=== PATIENT | female | born 1990 | race Caucasian/White ===

== ENCOUNTER 2020-03-20 19:38 | Emergency (ER) | payer OTHER, SELFPAY ==
[2020-03-20 19:57] VITALS: BP 105/70; PULSE 114; RESP 16; TEMP 36.6; O2SAT 97; BMI 31.8
[2020-03-20 20:00] VITALS: BP 108/71; PULSE 94; RESP 15; TEMP 37.8; O2SAT 97
--- NOTE | 2020-03-20 21:06 | CT_ITS ---
EXAMINATION: CT ABDOMEN AND PELVIS WITH CONTRAST CLINICAL INFORMATION: Bilateral lower quadrant pain COMPARISON: None TECHNIQUE: Multidetector volumetric images were obtained from the superior aspect of the liver through the pubic symphysis following administration 85 mL of Omnipaque 350 intravenous contrast. Sagittal and coronal reformatted images were obtained on the technologist's workstation. Oral contrast: No This CT examination was performed using dose optimization techniques as appropriate, variously including the following: *Automated exposure control *Adjustment of mA and/or kV according to patient size (this includes techniques or standardized protocols for targeted exams where dose is matched to indication/reason for exam; i.e. extremities or head) *Use of iterative reconstruction technique DLP: 616 mGy-cm FINDINGS: LUNG BASES: The visualized lung bases are unremarkable. LIVER, GALLBLADDER, AND BILIARY TREE: The liver is normal in size, shape, and attenuation. No focal hepatic lesion or biliary ductal dilatation is present. The gallbladder is unremarkable with no evidence of radiopaque gallstones, gallbladder wall thickening, or obvious pericholecystic inflammatory changes. PANCREAS: There is an approximately 1.1 cm hypodense lesion measuring at the upper limits of simple fluid density in the distal pancreas as seen on image 17/91. SPLEEN: Unremarkable. ADRENAL GLANDS: Unremarkable. KIDNEYS AND URETERS: The kidneys are normal in size, shape, and attenuation. No hydronephrosis, hydroureter, or calculi seen. No perinephric stranding. BLADDER: Unremarkable. GASTROINTESTINAL TRACT: There is a segment of colonic wall thickening centered around an inflamed diverticulum of the sigmoid colon, and there is pericolonic inflammation consistent with sequelae of acute diverticulitis. No pericolonic abscess or free air is seen. Trace pelvic free fluid is present. No evidence of bowel obstruction. The appendix is unremarkable. ABDOMINAL WALL: No significant hernia is appreciated. LYMPH NODES: Normal. VASCULAR: Unremarkable. PELVIC VISCERA: Unremarkable. OSSEOUS STRUCTURES: Unremarkable. IMPRESSION: 1. Diverticulitis of the sigmoid colon. No pericolonic abscess or free air identified. 2. Approximately 1.1 cm hypodense lesion in the distal pancreas, which could represent a small cystic neoplasm. Further workup with MRI/MRCP is recommended.
--- NOTE | 2020-03-20 21:07 | ED_ITS ---
HPI - Abdominal Pain General Chief Complaint: Abdominal Pain Stated Complaint: ABD PAIN Time Seen by Provider: 03/20/20 21:02 Source: patient Mode of arrival: ambulatory Limitations: no limitations History of Present Illness HPI narrative: Patient comes to the emergency room complaining of bilateral lower quadrant pain starting this morning. Patient states she feels pressure, intermittent pain, patient states when she has pain is 10/10 when she has to crawl into a position to alleviate the pain. The discomfort is not related to meals. Patient denies vomiting, diarrhea or constipation. No fever. MD elicited complaint: abdominal pain Onset (ago): hour(s) Pain Consistency: constant Location: RLQ and LLQ Severity: moderate Quality: cramping Radiation: none Migration to: no migration Related Data Previous Rx's Medication Instructions Recorded levofloxacin 500 mg PO Q24H #7 tab 03/21/20 metronidazole 500 mg PO BID #14 tab 03/21/20 Allergies Allergy/AdvReac Type Severity Reaction Status Date / Time No Known Allergies Allergy Verified 03/20/20 21:06 Review of Systems Review of Systems Constitutional : No Weight loss, No Fever, No Chills, No Night Sweats, No Fatigue, No Malaise ENT/Mouth : No Hearing loss, No Ear Pain, No Nasal Congestion, No Sinus Pain, No Hoarseness, No sore throat, No Rhinorrhea, No Swallowing Difficulty Eyes: No Eye Pain, No Swelling, No Redness, No Foreign Body, No Discharge, No Vision Changes Cardiovascular : No Chest Pain, No SOB, No Dyspnea on Exertion, No Orthopnea, No Edema, No Palpitations Respiratory : No Cough, No Sputum, No Wheezing, No Smoke Exposure, No Dyspnea Gastrointestinal : No Nausea, No Vomiting, No Diarrhea, No Constipation, bilateral lower quadrant pain, No Hematochezia, No Melena Genitourinary : no irregular bleeding, No Dysuria, No Urinary Frequency, No Hematuria, No Urinary Incontinence, No Urgency, No Flank Pain, No Urinary Flow Changes, No Hesitancy Musculoskeletal : No joint pain, No Myalgias, No Joint Swelling Skin : No Skin Lesions, No rash Neuro : No Weakness, No Numbness, No Paresthesias, No Loss of Consciousness, No Dizziness, No Headache Psych : No Anxiety/Panic, No Depression, No SI/HI/AH/VH, No Social Issues, Heme/Lymph: No Bruising, No Bleeding,No Lymphadenopathy Endocrine : No Polyuria, No Polydipsia, No Temperature Intolerance Physical Exam Vital Signs: Vital Signs: Vital Signs Temp Pulse Resp BP Pulse Ox 03/21/20 00:17 98.9 F 89 16 105/69 03/20/20 22:00 100.0 F 98 16 110/65 100 03/20/20 20:00 100.0 F 94 15 108/71 97 03/20/20 19:57 98 F 114 H 16 105/70 97 Body Mass Index 31.8 Appearance: Alert. Oriented X3. No acute distress. Eyes: Pupils equal, round and reactive to light. ENT: Pharynx normal. Neck: Normal inspection. Neck supple. No lymph nodes noted. No crepitus CVS: Normal heart rate and rhythm. Pulses normal. Normal S1 and S2 Respiratory: No respiratory distress. Breath sounds normal. No Wheezing. No rales Abdomen: Soft , moderate tenderness to deep palpation in left and right lower quadrants, No rigidity. No distention, no guarding, good BS x4 Skin: Skin warm and dry. Normal skin color. Normal skin turgor. Extremities: No lower extremity edema. No lower extremity edema. No Lacerations. No Rash Neuro: Oriented X 3. No motor deficit. No sensory deficit. Moving all extermities. No slurred speech. Course Reevaluation(s) Reevaluation #1: patient's abdominal pain resolved MDM - Abdominal Pain MDM Narrative Medical decision making narrative: I discussed the labs and CT scan with the patient, patient will be treated for diverticulitis. Patient is also aware that she has a small mass in the pancreas, she needs close follow-up with her primary care physician and will need an MRI. Patient states she has an appointment at the end of the week With her PCP. abdomen and pelvis CT scan: 1. Diverticulitis of the sigmoid colon. No pericolonic abscess or free air identified. 2. Approximately 1.1 cm hypodense lesion in the distal pancreas, which could represent a small cystic neoplasm. Further workup with MRI/MRCP is recommended. Differential Diagnosis Differential diagnosis: Likely abdominal pain and diverticulitis Medical Records Attestation: I reviewed the patient's medical records. Lab Data Attestation: I reviewed the patient's lab results. Result diagrams: 03/20/20 21:17 03/20/20 22:09 Labs: Lab Results 03/20/20 03/20/20 03/20/20 Range/Units 21:17 21:17 21:17 WBC 12.4 H (4.8-10.8) X10*3/uL RBC 4.76 (4.20-5.50) X10*6/uL Hgb 12.8 (12.0-16.0) g/dl Hct 39.9 (37-47) % MCV 83.8 (80-98) fL MCH 26.9 L (27.0-33.0) pg MCHC 32.1 (31.0-35.0) g/dl RDW 15.2 (11.0-16.0) % Plt Count 297 (160-400) X10*3/uL MPV 11.7 (9.4-12.3) fL Immature Gran % (Auto) 0.2 (0.0-0.4) % Neut % (Auto) 81.8 H (45-73) % Lymph % (Auto) 10.2 L (20-40) % [place] % (Auto) 7.4 (2-11) % Eos % (Auto) 0.2 (0-4) % Baso % (Auto) 0.2 (0-2) % Lymph # (Auto) 1.3 (1.2-4.9) X10*3/uL [place] # (Auto) 0.9 (0.1-1.2) X10*3/uL Eos # (Auto) 0.0 (0.0-0.4) X10*3/uL Baso # (Auto) 0.0 (0.0-0.2) X10*3/uL Abs Immat Gran (auto) 0.03 (0.00-0.03) X10*3/uL Absolute Neuts (auto) 10.2 H (2.0-8.3) X10*3/uL Absolute Nucleated RBC 0.000 (0.0-0.012) X10*3/uL Nucleated RBC % (auto) 0.0 (0.0-0.2) /100WBC Sodium Cancelled Potassium Cancelled Chloride Cancelled Carbon Dioxide Cancelled Anion Gap Cancelled BUN Cancelled Creatinine Cancelled Estim Creat Clear Calc Cancelled Estimated GFR Cancelled Random Glucose Cancelled Calcium Cancelled Total Bilirubin Cancelled Direct Bilirubin Cancelled AST Cancelled ALT Cancelled Alkaline Phosphatase Cancelled Total Protein Cancelled Albumin Cancelled Lipase (8-78) U/L Urine Color YELLOW Urine Appearance CLEAR Urine pH 5.5 (5.0-8.0) Ur Specific [place] >= 1.030 H (1.005-1.025) Urine Protein NEG (NEG-TRACE) MG/DL Urine Glucose (UA) NEG (NEG) MG/DL Urine Ketones NEG (NEG) MG/DL Urine Blood NEG (NEG) Urine Nitrite NEG (NEG) Ur Leukocyte Esterase NEG (NEG) Urine Test NEGATIVE (NEGATIVE) 03/20/20 Range/Units 22:09 WBC (4.8-10.8) X10*3/uL RBC (4.20-5.50) X10*6/uL Hgb (12.0-16.0) g/dl Hct (37-47) % MCV (80-98) fL MCH (27.0-33.0) pg MCHC (31.0-35.0) g/dl RDW (11.0-16.0) % Plt Count (160-400) X10*3/uL MPV (9.4-12.3) fL Immature Gran % (Auto) (0.0-0.4) % Neut % (Auto) (45-73) % Lymph % (Auto) (20-40) % [place] % (Auto) (2-11) % Eos % (Auto) (0-4) % Baso % (Auto) (0-2) % Lymph # (Auto) (1.2-4.9) X10*3/uL [place] # (Auto) (0.1-1.2) X10*3/uL Eos # (Auto) (0.0-0.4) X10*3/uL Baso # (Auto) (0.0-0.2) X10*3/uL Abs Immat Gran (auto) (0.00-0.03) X10*3/uL Absolute Neuts (auto) (2.0-8.3) X10*3/uL Absolute Nucleated RBC (0.0-0.012) X10*3/uL Nucleated RBC % (auto) (0.0-0.2) /100WBC Sodium 137 Potassium 4.2 Chloride 103 Carbon Dioxide 25 Anion Gap 13 BUN 13 Creatinine 0.69 Estim Creat Clear Calc 128.4 Estimated GFR > 60 Random Glucose 100 Calcium 9.1 Total Bilirubin 0.4 Direct Bilirubin 0.2 AST 15 ALT 18 Alkaline Phosphatase 75 Total Protein 7.4 Albumin 4.1 Lipase 8 (8-78) U/L Urine Color Urine Appearance Urine pH (5.0-8.0) Ur Specific [place] (1.005-1.025) Urine Protein (NEG-TRACE) MG/DL Urine Glucose (UA) (NEG) MG/DL Urine Ketones (NEG) MG/DL Urine Blood (NEG) Urine Nitrite (NEG) Ur Leukocyte Esterase (NEG) Urine Test (NEGATIVE) Discharge Plan Discharge Clinical Impression: Diverticulitis Patient Disposition: Home, Self-Care Instructions: Diverticulitis (ED), Diverticulitis Diet (ED) Additional Instructions: please follow-up with her primary care physician, please discuss with your PCP the CT scan findings of today ( diverticulitis and 1.1cm pancreatic lesion). it is very important that you discussed these findings with your primary care physician since she will likely need an MRI. If you have any worsening or new symptoms, please return to the emergency room or call 911 Prescriptions: New levofloxacin 500 mg tablet 500 mg PO Q24H Qty: 7 RF: 0 metronidazole 500 mg tablet 500 mg PO BID Qty: 14 RF: 0 PMFSH Past Medical History Medical History Asthma Migraine Social History Social History Alcohol intake: never Smoking Status: Never smoker Use of substances other than those prescribed or required for medical reasons: No Advance Directives: No Advance Directives Information Provided: Yes
--- NOTE | 2020-03-20 21:12 | PC.NURSE ---
Pt ambulating to the bathroom to provide urine sample. Pt ambulating with a carney/steady gait.
--- NOTE | 2020-03-20 21:26 | PC.NURSE ---
Pt ambulating to the bathroom to provide urine sample.
[2020-03-20 21:27] LABS: MANUAL DIFF FLAG NO
--- NOTE | 2020-03-20 21:27 | PC.NURSE ---
IV established, labs and urine obtained and sent.
[2020-03-20 21:30] LABS: Basophils Percent Auto 0.2 % (0-2); Eosinophils Percent Auto 0.2 % (0-4); Glucose Urine UA NEG (NEG); Hematocrit 39.9 % (37-47); Hemoglobin 12.8 g/dl (12.0-16.0); Imm Gran Abs Auto 0.03 X10*3/uL (0.00-0.03); Imm Gran Pct Auto 0.2 % (0.0-0.4); Leukocyte Esterase Urine NEG (NEG); Lymphocytes Absolute Auto 1.3 X10*3/uL (1.2-4.9); Lymphocytes Percent Auto 10.2 % (20-40); Mean Corpuscular HGB Conc 32.1 g/dl (31.0-35.0); Mean Corpuscular Hemoglobin 26.9 pg (27.0-33.0); Mean Corpuscular Volume 83.8 fL (80-98); Mean Platelet Volume 11.7 fL (9.4-12.3); Monocytes Absolute Auto 0.9 X10*3/uL (0.1-1.2); Monocytes Percent Auto 7.4 % (2-11); Neutrophils Absolute Auto 10.2 X10*3/uL (2.0-8.3); Neutrophils Percent Auto 81.8 % (45-73); Nitrite Urine NEG (NEG); PH 5.5 (5.0-8.0); Platelet Count 297 X10*3/uL (160-400); Red Blood Count 4.76 X10*6/uL (4.20-5.50); Red Cell Distribution Width 15.2 % (11.0-16.0); Specific Gravity - Urine >= 1.030 (1.005-1.025); Urine Blood NEG (NEG); Urine Ketones NEG (NEG); Urine Protein NEG (NEG-TRACE); White Blood Count 12.4 X10*3/uL (4.8-10.8)
[2020-03-20 21:32] LABS: Appearance Urine CLEAR; Color Urine YELLOW; UPreg QC Valid YES; Urine Pregnancy NEGATIVE (NEGATIVE)
[2020-03-20 22:00] VITALS: BP 110/65; PULSE 98; RESP 16; TEMP 37.8; O2SAT 100
[2020-03-20] MEDS: Ketorolac Tromethamine 15 MG/ML VIAL IV (22:04)
--- NOTE | 2020-03-20 22:27 | PC.NURSE ---
Labs redrawn and sent for analysis.
[2020-03-20 22:51] LABS: Lipase 8 U/L (8-78)
--- NOTE | 2020-03-20 23:14 | PC.NURSE ---
Per CT, awaiting lab results. This RN calling the lab inquiring about the results, per lab, orders to be added on to previous specimen.
[2020-03-20 23:50] LABS: Alanine Aminotransferase 18 U/L (0-31); Albumin Level 4.1 g/dL (3.5-5.0); Alkaline Phosphatase 75 U/L (39-117); Anion Gap 13 (12-20); Aspartate Amino Transferase 15 U/L (5-31); Bilirubin Direct 0.2 mg/dL (0.0-0.5); Bilirubin Total 0.4 mg/dL (0.0-1.0); Blood Urea Nitrogen 13 mg/dL (9-16); Calcium 9.1 mg/dL (8.4-10.2); Carbon Dioxide 25 mmol/L (22-29); Chloride 103 mmol/L (96-108); Creatinine Clr Calc Pharmacy 128.4; Estimated Glomerular Filt Rate > 60; Glucose Random 100 mg/dL (60-115); Potassium 4.2 mmol/l (3.3-5.1); Sodium 137 mmol/L (135-145); Total Protein 7.4 g/dL (6.5-8.0)
--- NOTE | 2020-03-21 00:02 | PC.NURSE ---
Pt ambulating to CT with a carney/steady gait.
[2020-03-21 00:17] VITALS: BP 105/69; PULSE 89; RESP 16; TEMP 37.2
[2020-03-21] MEDS: iohexoL 350 MG/ML 100 ML INFUS..BTL 85 ML IV (00:17)
[2020-03-21] MEDS: metroNIDAZOLE 500 MG TABLET PO (01:10)
[2020-03-21] MEDS: levoFLOXacin 500 MG TABLET PO (01:10)
--- NOTE | 2020-03-21 01:11 | PC.NURSE ---
Pt medicated per EMAR, aware of plan to DC home.
[2020-03-21 01:14] VITALS: BP 121/76; RESP 16; TEMP 37; O2SAT 99
== END 2020-03-21 01:23 | disposition home or self-care (01) ==
PROVIDERS: Emergency Provider Emergency Medicine
DX: K57.32 Diverticulitis of large intestine without perforation or abscess without bleeding (principal); R93.3 Abnormal findings on diagnostic imaging of other parts of digestive tract; K86.9 Disease of pancreas, unspecified; J45.909 Unspecified asthma, uncomplicated
CPT/HCPCS: 36415; 74177; 80048; 80076; 81003; 81025; 83690; 85025; 96374; 99284; J1885

== ENCOUNTER 2020-05-12 12:57 | Outpatient (REF) | payer OTHER, SELFPAY | END 2020-05-12 12:58 | disposition home or self-care (01) | LOC: HO.LAB 12:57 | PROVIDERS: Visit Provider Internal Medicine | DX: Z20.828 Contact with and (suspected) exposure to other viral communicable diseases (principal) | CPT/HCPCS: C9803; U0003 ==

== ENCOUNTER 2020-06-17 14:21 | Emergency (ER) | payer OTHER, SELFPAY ==
[2020-06-17 17:16] VITALS: BP 128/76; PULSE 86; RESP 16; TEMP 36.8; O2SAT 99; BMI 31.6
--- NOTE | 2020-06-17 23:12 | ED.DIZZY ---
HPI - Dizziness General Chief Complaint: Dizziness Stated Complaint: dizziness Time Seen by Provider: 06/17/20 23:10 Source: patient Mode of arrival: ambulatory Limitations: language barrier History of Present Illness HPI Narrative: Patient no significant past medical history been feeling dizziness since yesterday started all of a sudden specially moving her head. Feel off-balance nauseated vomited 1 time. Patient also late for her menses By 1 week MD elicited complaint: dizziness Pertinent past history: BPPV Onset (ago): day(s) (2) Timing: sudden onset Severity: mild Description: sense of movement and room spinning Context: change in body position History of similar symptoms: Yes Exacerbating factors: change in body position Relieving factors: nothing Associated symptoms: nausea and vomiting Related Data Previous Rx's Medication Instructions Recorded levofloxacin 500 mg PO Q24H #7 tab 03/21/20 metronidazole 500 mg PO BID #14 tab 03/21/20 meclizine 25 mg PO TID PRN #20 tab 06/18/20 Allergies Allergy/AdvReac Type Severity Reaction Status Date / Time No Known Allergies Allergy Verified 06/17/20 17:42 Review of Systems Review of Systems: Constitutional : No Weight loss, No Fever, No Chills ENT/Mouth : No sore throat, No Rhinorrhea Eyes: No Eye Pain, No Swelling Cardiovascular : No Chest Pain, no palpitations Respiratory : No Cough, No Sputum, no shortness of breath Gastrointestinal : no Nausea, No Vomiting, No Diarrhea, No abdominal Pain, no black stools Genitourinary : No Dysuria, No Urinary Frequency Musculoskeletal : No joint pain, No Myalgias, No Joint Swelling Skin : No Skin Lesions, No rash Neuro : No Weakness, No Numbness,++Dizziness, No Headache Psych : No Anxiety/Panic, No Depression Heme/Lymph: No Bruising, No Lymphadenopathy Endocrine : No Polyuria, No Polydipsia All other systems reviewed and are negative ENT: Reports Normal hearing present Neurologic: Reports Normal hearing present [facility] Past Medical History Medical History Asthma Migraine Social History Social History Alcohol intake: never Smoking Status: Never smoker Smoked in Last 30 Days: No Use of substances other than those prescribed or required for medical reasons: No Advance Directives: No Physical Exam Vital Signs: Vital Signs: Last Vital Signs Temp 98.2 F 06/17/20 17:16 Pulse 86 06/17/20 17:16 Resp 16 06/17/20 17:16 BP 128/76 06/17/20 17:16 Pulse Ox 99 06/17/20 17:16 Body Mass Index 31.6 Const: General: cooperative, healthy appearing, comfortable, no acute distress and well developed Orientation/consciousness: patient oriented x3 HENMT: Head: Yes normocephalic and Yes atraumatic Ears: hearing grossly normal bilaterally, external ears normal, TM's normal bilaterally and EAC's normal General nose exam: Normal external nose present Face and sinus: Yes normal facial exam Mouth: Normal oral and palatal mucosa present Eyes: General: appearance normal, both eyes and all related structures Pupils: Equal, round and reactive pupils present Neck: Neck: Yes normal visual inspection, Yes full ROM and Yes no lymphadenopathy Thyroid: Thyroid normal Resp: Effort & Inspection: normal respiratory effort Auscultation: clear to auscultation bilaterally, no crackles and no rales Cardio: Rate: regular rate Rhythm: regular rhythm Heart sounds: S1 normal heart sound present and S2 normal heart sound present GI: Inspection: Yes normal to inspection Palpation (GI): Soft to palpation and nontender Neuro: General: patient oriented x3, gait normal, moves all extremities, no focal motor deficits and CN's II-XI intact bilaterally Cranial nerves: Yes CN's II-XII intact bilaterally, Yes Equal, round and reactive pupils present, Yes Bilaterally intact EOM present, Yes Nystagmus not present and Yes Normal hearing present MDM - Dizziness Lab Data Labs: Lab Results 06/17/20 Range/Units 23:29 Urine Color YELLOW Urine Appearance CLEAR Urine pH 6.0 (5.0-8.0) Ur Specific [place] >= 1.030 H (1.005-1.025) Urine Protein NEG (NEG-TRACE) MG/DL Urine Glucose (UA) NEG (NEG) MG/DL Urine Ketones NEG (NEG) MG/DL Urine Blood NEG (NEG) Urine Nitrite NEG (NEG) Ur Leukocyte Esterase TRACE H (NEG) Urine RBC 0-2 (0) /HPF Urine WBC 5-9 H (0-4) /HPF Ur Squamous Epith Cells 3+ /LPF Urine Bacteria TRACE /LPF Urine Mucus 2+ /LPF Urine Yeast TRACE /HPF Urine Test NEGATIVE (NEGATIVE) Discharge Plan Discharge Clinical Impression: Benign paroxysmal positional vertigo Patient Disposition: Home, Self-Care Instructions: Benign Paroxysmal Positional Vertigo (ED) Additional Instructions: Care and cautions as advised take medication as prescribed for severe dizziness follow up with PCP if not better Prescriptions: New meclizine 25 mg tablet 25 mg PO TID PRN (Reason: dizziness or vertigo) Qty: 20 RF: 0 No Action levofloxacin 500 mg tablet 500 mg PO Q24H Qty: 7 RF: 0 metronidazole 500 mg tablet 500 mg PO BID Qty: 14 RF: 0 Print Language: [place]
[2020-06-17 23:41] LABS: Glucose Urine UA NEG (NEG); Leukocyte Esterase Urine TRACE (NEG); Nitrite Urine NEG (NEG); Specific Gravity - Urine >= 1.030 (1.005-1.025); Urine Blood NEG (NEG); Urine Ketones NEG (NEG); Urine Protein NEG (NEG-TRACE)
[2020-06-17 23:48] LABS: Appearance Urine CLEAR; Color Urine YELLOW
[2020-06-17 23:55] LABS: UPreg QC Valid YES; Urine Pregnancy NEGATIVE (NEGATIVE)
[2020-06-18 00:11] LABS: Bacteria Urine TRACE /LPF; Mucus Urine 2+ /LPF; RBC Urine 0-2 /HPF (0); Squamous Epithelial Cell Urine 3+ /LPF
[2020-06-18] MEDS: Meclizine HCl 25 MG TABLET PO (00:37)
== END 2020-06-18 00:44 | disposition home or self-care (01) ==
PROVIDERS: Emergency Provider Internal Medicine
DX: H81.13 Benign paroxysmal vertigo, bilateral (principal); R11.2 Nausea with vomiting, unspecified; Z79.899 Other long term (current) drug therapy
CPT/HCPCS: 81001; 81025; 87086; 99283; 99284

== ENCOUNTER 2020-11-13 08:57 | Emergency (ER) | payer OTHER, SELFPAY ==
--- NOTE | ~2020-11-13 | XR_ITS ---
EXAMINATION: XR CHEST CLINICAL INFORMATION: Shortness of breath. COMPARISON: None TECHNIQUE: Frontal view of the chest was obtained. FINDINGS: No significant abnormality is noted involving the heart, lungs, mediastinum, bony thorax or soft tissues. XR/XR chest 1V IMPRESSION: No acute cardiopulmonary process.
[2020-11-13 09:35] VITALS: PULSE 97; O2SAT 100
[2020-11-13 10:01] VITALS: BP 122/86; PULSE 80; RESP 20; TEMP 36.5; O2SAT 100; BMI 32.4
[2020-11-13 10:09] VITALS: BP 122/86; PULSE 73; RESP 20; TEMP 36.5; O2SAT 100; O2SAT 99
--- NOTE | 2020-11-13 10:24 | PC.NURSE ---
Pt alert, oriented, vss, LSCTA, denies pain. Pt reports asthma exacerbation starting this morning, used pump at 0700 with no relief. Pt currently has dry cough, no difficulty breathing, no chest pain. Pt resting quietly, no apparent distress. X-RAY AT BEDSIDE.
[2020-11-13 10:51] LABS: Hematocrit 35.8 % (37-47); Hemoglobin 11.4 g/dl (12.0-16.0); Mean Corpuscular HGB Conc 31.8 g/dl (31.0-35.0); Mean Corpuscular Hemoglobin 26.1 pg (27.0-33.0); Mean Corpuscular Volume 82.1 fL (80-98); Mean Platelet Volume 11.6 fL (9.4-12.3); Platelet Count 272 X10*3/uL (160-400); Red Blood Count 4.36 X10*6/uL (4.20-5.50); Red Cell Distribution Width 15.2 % (11.0-16.0); White Blood Count 6.2 X10*3/uL (4.8-10.8)
[2020-11-13 11:16] LABS: COVID-19 Test Negative (Negative)
[2020-11-13 11:22] LABS: Anion Gap 12 (12-20); Blood Urea Nitrogen 9 mg/dL (9-16); Calcium 9.8 mg/dL (8.4-10.2); Carbon Dioxide 27 mmol/L (22-29); Chloride 104 mmol/L (96-108); Creatinine Clr Calc Pharmacy 131.7; Estimated Glomerular Filt Rate > 60; Glucose Random 90 mg/dL (60-115); Potassium 4.2 mmol/L (3.3-5.1); Sodium 139 mmol/L (135-145)
--- NOTE | 2020-11-13 11:52 | ED_ITS ---
HPI - Asthma General Chief Complaint: Asthma Stated Complaint: difficulty breathing Time Seen by Provider: 11/13/20 10:50 Source: patient Mode of arrival: ambulatory Limitations: no limitations History of Present Illness HPI Narrative: 29-year-old female with history of asthma who presents to the ED with shortness of breath and cough. States this has been ongoing for the last few days. Denies any chest pain abdominal pain nausea vomiting or recent changes in bowel or bladder habits. Denies known fevers or chills. States she tried to use her albuterol inhaler at home with minimal improvement. States the last dose was around 07:00 at work. Due to concern she felt she needed to be seen. Patient is fully vaccinated against COVID-19. Related Data Previous Rx's Medication Instructions Recorded levofloxacin 500 mg PO Q24H #7 tab 03/21/20 metronidazole 500 mg PO BID #14 tab 03/21/20 meclizine 25 mg PO TID PRN #20 tab 06/18/20 prednisone 60 mg PO DAILY 5 Days #15 tab 11/13/20 Allergies Allergy/AdvReac Type Severity Reaction Status Date / Time No Known Allergies Allergy Verified 06/17/20 17:42 Review of Systems Review of Systems: Constitutional : No Weight loss, No Fever, No Chills, No Night Sweats, No Fatigue, No Malaise ENT/Mouth : No Hearing loss, No Ear Pain, No Nasal Congestion, No Sinus Pain, No Hoarseness, No sore throat, No Rhinorrhea, No Swallowing Difficulty Eyes: No Eye Pain, No Swelling, No Redness, No Foreign Body, No Discharge, No Vision Changes Cardiovascular : No Chest Pain, + SOB, No Dyspnea on Exertion, No Orthopnea, No Edema, No Palpitations Respiratory : + Cough, No Sputum, + Wheezing, No Smoke Exposure Gastrointestinal : No Nausea, No Vomiting, No Diarrhea, No Constipation, No abdominal Pain, No Hematochezia, No Melena Genitourinary : no irregular bleeding, No Dysuria, No Urinary Frequency, No Hematuria, No Urinary Incontinence, No Urgency, No Flank Pain, No Urinary Flow Changes, No Hesitancy Musculoskeletal : No joint pain, No Myalgias, No Joint Swelling Skin : No Skin Lesions, No rash Neuro : No Weakness, No Numbness, No Paresthesias, No Loss of Consciousness, No Dizziness, No Headache Psych : No Anxiety/Panic, No Depression, No SI/HI/AH/VH, No Social Issues, Heme/Lymph: No Bruising, No Bleeding,No Lymphadenopathy Endocrine : No Polyuria, No Polydipsia, No Temperature Intolerance [facility] Past Medical History Attestation statement: The following information was validated with the patient. Source: old records reviewed and nursing notes reviewed Medical History Asthma Migraine Social History Social History Alcohol intake: never Patient Tobacco Use Status: Never used Tobacco Advance Directives: Yes Advance Directives Information Provided: Yes Advance Directives on File: No Physical Exam Vital Signs: Vital Signs: Last Vital Signs Temp 97.7 F 11/13/20 10:09 Pulse 101 H 11/13/20 13:17 Resp 16 11/13/20 13:17 BP 113/68 11/13/20 13:17 Pulse Ox 100 11/13/20 13:17 Body Mass Index 32.4 vital signs have been reviewed as normal and appeared to be correct. Blood pressure normal. Heart rate normal. Respiration rate normal. Temperature normal. Oxygen saturation normal. Appearance: Alert. Oriented X3. Mild acute distress. Head: Normal external exam. Normocephalic. Atraumatic. No José signs noted. No raccoon eyes noted Eyes: PERRLA. EOMI. Conjunctiva and sclera normal. Eyelids normal. ENT: EAC normal. TM's Normal. Pharynx normal. Uvula midline. Moist mucous membranes. No trismus noted. No drooling noted. No muffled voice noted. Neck: Normal inspection. Neck supple. FROM. No meningeal signs. No neck mass noted. CVS: Normal heart rate and rhythm. Heart sound normal. No murmurs noted. Pulses normal throughout. Respiratory: No respiratory distress. Painless inspiration. Breath sounds slightly diminished. No obvious wheezes/rales/rhonchi noted. Chest nontender. No accessory muscle usage noted Abdomen: Soft and nontender. Bowel sounds normal in all 4 quadrants. No disten tion noted. No organomegaly noted. No visible injury noted. Back: No CVA tenderness. Full range of motion noted. Skin: Skin warm and dry. Normal skin color. Normal skin turgor. No rashes/lesions/lacerations noted. Extremities: No lower extremity edema. Extremities exhibit normal range of mot ion. Extremities nontender. Neuro: Oriented X 3. No motor deficit. No sensory deficit. Course Reevaluation(s) Reevaluation #1: Patient does feel some improvement after breathing treatment field with discharge is safe with continued steroids at home and close outpatient primary care follow-up labs and chest x-ray are unremarkable. MDM - Asthma MDM Narrative Medical decision making narrative: Patient's vital signs are stable and she is afebrile. Patient presenting to the emergency department for shortness of breath and cough over the last few days does have a history of asthma feels like this is her asthma. Chest x-ray obtained in triage without evidence of pulmonary consolidation or edema. Patient with diminished lung sounds bilaterally without discrete res will trial 7.5 mg of nebulized albuterol and oral prednisone. COVID-19 test negative. Basic labs obtained in triage down process. Will continue to monitor and reassess pending above. Patient is PERC negative no acute concern for PE. Patient denies chest pain notes a concern for ACS. Lab Data Result diagrams: 11/13/20 10:44 11/13/20 10:44 Labs: Lab Results 11/13/20 11/13/20 11/13/20 Range/Units 10:44 10:44 10:44 WBC 6.2 (4.8-10.8) X10*3/uL RBC 4.36 (4.20-5.50) X10*6/uL Hgb 11.4 L (12.0-16.0) g/dl Hct 35.8 L (37-47) % MCV 82.1 (80-98) fL MCH 26.1 L (27.0-33.0) pg MCHC 31.8 (31.0-35.0) g/dl RDW 15.2 (11.0-16.0) % Plt Count 272 (160-400) X10*3/uL MPV 11.6 (9.4-12.3) fL Absolute Nucleated RBC 0.000 (0.0-0.012) X10*3/uL Nucleated RBC % (auto) 0.0 (0.0-0.2) /100WBC Sodium 139 (135-145) mmol/L Potassium 4.2 (3.3-5.1) mmol/L Chloride 104 (96-108) mmol/L Carbon Dioxide 27 (22-29) mmol/L Anion Gap 12 (12-20) BUN 9 (9-16) mg/dL Creatinine 0.68 (0.5-1.4) mg/dL Estim Creat Clear Calc 131.7 Estimated GFR > 60 Random Glucose 90 (60-115) mg/dL Calcium 9.8 D (8.4-10.2) mg/dL COVID-19 (SANDI) Negative (Negative) COVID-19 Clin Com See Note Discharge Plan Discharge Clinical Impression: Asthma with acute exacerbation Qualifiers: Asthma severity: mild Asthma persistence: intermittent Qualified Code(s): J45.21 - Mild intermittent asthma with (acute) exacerbation Patient Disposition: Home, Self-Care Instructions: Asthma (ED) Additional Instructions: Your seen in the emergency department today for shortness of breath this is secondary to her asthma blood work and a chest x-ray was done and was normal your COVID test negative. Please continue steroids at home for 5 additional days continue to use albuterol inhaler as needed follow-up with your doctor in the next few days. Prescriptions: New prednisone 20 mg tablet 60 mg PO DAILY 5 Days Qty: 15 RF: 0 No Action meclizine 25 mg tablet 25 mg PO TID PRN (Reason: dizziness or vertigo) Qty: 20 RF: 0 levofloxacin 500 mg tablet 500 mg PO Q24H Qty: 7 RF: 0 metronidazole 500 mg tablet 500 mg PO BID Qty: 14 RF: 0 Referrals: Physician,Unknown [Primary Care Provider] - 2 days (your PCP) Stand Alone Forms: Work/School Release Interventions: ED Discharge Assessment Last Done: 11/13/20 13:30 Discharge Date/Time: 11/13/20 13:31 Print Language: Occitan
[2020-11-13] MEDS: Albuterol Sulfate (0.083%) 2.5 MG/3 ML VIAL.NEB 7.5 MG INHALE (12:12)
[2020-11-13 12:18] VITALS: PULSE 74; O2SAT 100
[2020-11-13] MEDS: predniSONE 20 MG TABLET 60 MG PO (13:15)
[2020-11-13 13:17] VITALS: BP 113/68; PULSE 101; RESP 16; O2SAT 100
== END 2020-11-13 13:31 | disposition home or self-care (01) ==
PROVIDERS: Emergency Provider Emergency Medicine Emergency Medical Services
DX: J45.21 Mild intermittent asthma with (acute) exacerbation (principal); Z20.822 Contact with and (suspected) exposure to COVID-19
CPT/HCPCS: 36415; 71045; 80048; 85027; 87635; 94640; 94664; 99284; 99285

== ENCOUNTER 2021-09-29 20:10 | Emergency (ER) | payer OTHER, SELFPAY ==
--- NOTE | ~2021-09-29 | US_ITS ---
EXAMINATION: US PELVIS CLINICAL INFORMATION: Left pelvic pain COMPARISON: Previous CT of the abdomen and pelvis March 2020 TECHNIQUE: Ultrasound of the pelvis is performed using both transabdominal and transvaginal transducers along with Doppler. Transvaginal imaging is performed due to inadequate visualization transabdominally. FINDINGS: The uterus is retroverted and measures 8.8 x 4.3 x 4.3 cm in dimension. No focal uterine lesion is seen. There are nabothian cysts in the cervix. The ovaries are normal-appearing. The right ovary measures 1.4 x 2 x 2.3 cm. The left ovary measures 2.8 x 1.8 x 2.4 cm. There is a small minimally complex cyst or a dominant follicle right ovary that measures 1.3 x 1.5 x 1.3 cm. There is no fluid in the pelvis. US/US pelvic and transvaginal IMPRESSION: Unremarkable pelvic ultrasound.
[2021-09-29 20:26] VITALS: BP 142/90; PULSE 75; RESP 18; TEMP 36.2; O2SAT 98; BMI 31.5
[2021-09-29 20:39] LABS: MANUAL DIFF FLAG NO
[2021-09-29 20:41] LABS: Basophils Percent Auto 0.5 % (0-2); Eosinophils Absolute Auto 0.1 X10*3/uL (0.0-0.4); Eosinophils Percent Auto 1.1 % (0-4); Hematocrit 37.4 % (37.0-47.0); Hemoglobin 12.2 g/dl (12.0-16.0); Imm Gran Abs Auto 0.01 X10*3/uL (0.00-0.03); Imm Gran Pct Auto 0.1 % (0.0-0.4); Mean Corpuscular HGB Conc 32.6 g/dl (31.0-35.0); Mean Corpuscular Hemoglobin 28.2 pg (27.0-33.0); Mean Corpuscular Volume 86.4 fL (80.0-98.0); Mean Platelet Volume 11.6 fL (9.4-12.3); Monocytes Absolute Auto 0.6 X10*3/uL (0.1-1.2); Monocytes Percent Auto 7.8 % (2-11); Neutrophils Absolute Auto 4.6 x10*3/uL (2.0-8.3); Neutrophils Percent Auto 63.5 % (45-73); Platelet Count 279 X10*3/uL (160-400); Red Blood Count 4.33 X10*6/uL (4.20-5.50); Red Cell Distribution Width 13.4 % (11.0-16.0); White Blood Count 7.3 X10*3/uL (4.8-10.8)
[2021-09-29 20:42] LABS: Appearance Urine CLEAR; Color Urine YELLOW; Glucose Urine UA NEG (NEG); Leukocyte Esterase Urine NEG (NEG); Nitrite Urine NEG (NEG); PH 6.5 (5.0-8.0); Urine Blood NEG (NEG); Urine Ketones NEG (NEG); Urine Protein NEG (NEG-TRACE)
[2021-09-29 20:53] LABS: UPreg QC Valid YES; Urine Pregnancy NEGATIVE (NEGATIVE)
[2021-09-29 20:58] LABS: Alanine Aminotransferase 13 U/L (0-31); Albumin Level 4.3 g/dL (3.5-5.0); Alkaline Phosphatase 61 U/L (39-117); Anion Gap 9 (12-20); Aspartate Amino Transferase 14 U/L (5-31); Bilirubin Total 0.2 mg/dL (0.0-1.0); Blood Urea Nitrogen 12 mg/dL (9-16); Calcium 9.4 mg/dL (8.4-10.2); Carbon Dioxide 30 mmol/L (22-29); Chloride 104 mmol/L (96-108); Creatinine Clr Calc Pharmacy 117.6; Estimated Glomerular Filt Rate > 60; Glucose Random 77 mg/dL (60-115); Potassium 3.8 mmol/L (3.3-5.1); Sodium 139 mmol/L (135-145); Total Protein 7.7 g/dL (6.5-8.0)
[2021-09-29 21:02] VITALS: BP 124/85; PULSE 70; RESP 18; O2SAT 100
--- NOTE | 2021-09-29 21:30 | ED.ABDPAIN ---
HPI - Abdominal Pain General Chief Complaint: Abdominal Pain Stated Complaint: abdominal pain Time Seen by Provider: 09/29/21 21:30 Source: patient Mode of arrival: ambulatory Limitations: no limitations History of Present Illness HPI narrative: Patient is here diverticulitis 2 years ago comes here for pain in suprapubic area especially in the left side since afternoon today no nausea no vomiting no fever no chills no diarrhea patient had diverticulitis 2 years ago and pain was really different and had vomiting with fever. Patient missed her menstrual period Also no history of ovarian cyst Related Data Previous Rx's Medication Instructions Recorded levofloxacin 500 mg tablet 500 mg PO Q24H #7 tab 03/21/20 metronidazole 500 mg tablet 500 mg PO BID #14 tab 03/21/20 meclizine 25 mg tablet 25 mg PO TID PRN #20 tab 06/18/20 prednisone 20 mg tablet 60 mg PO DAILY 5 Days #15 tab 11/13/20 ibuprofen 600 mg tablet 600 mg PO Q6H PRN #20 tab 09/29/21 Allergies Allergy/AdvReac Type Severity Reaction Status Date / Time No Known Allergies Allergy Verified 09/29/21 20:29 Review of Systems Review of Systems Yes all other systems are reviewed and are negative [facility] Past Medical History Medical History Asthma Migraine Social History Social History Alcohol intake: never Patient Tobacco Use Status: Never used Tobacco Advance Directives: No Advance Directives Information Provided: Yes Physical Exam ED Vital Signs: Vital Signs - 24 hr 09/29/21 20:26 09/29/21 21:02 Temperature 97.2 F Pulse Rate 75 70 Respiratory Rate 18 18 Blood Pressure 142/90 H 124/85 Pulse Oximetry 98 100 BMI result Body Mass Index 31.5 Appearance: Alert. Oriented X3. No acute distress. Eyes: No pallor or icterus ENT: Pharynx normal. Oral Mucosa moist Neck: Normal inspection. Neck supple. CVS: Normal heart rate and rhythm. Pulses normal. Respiratory: No respiratory distress. Equal air entry bilateral, Abdomen: Soft edema tenderness left lower quadrant no rebound tenderness or guarding Bowel sounds are present, no mass palpable, no CVA tenderness Skin: Skin warm and dry. Normal skin color. Normal skin turgor. Extremities: No lower extremity edema. No calf tenderness Neuro: Oriented X 3. MDM - Abdominal Pain MDM Narrative Medical decision making narrative: Patient with pelvic pain without any vaginal discharge ultrasound of pelvis negative for ovarian cyst CBC counts normal no other symptoms will discharge patient on ibuprofen Lab Data Attestation: I reviewed the patient's lab results. Result diagrams: 09/29/21 20:32 09/29/21 20:32 Labs: Lab Results 09/29/21 09/29/21 09/29/21 Range/Units 20:32 20:32 20:32 WBC 7.3 (4.8-10.8) X10*3/uL RBC 4.33 (4.20-5.50) X10*6/uL Hgb 12.2 (12.0-16.0) g/dl Hct 37.4 (37.0-47.0) % MCV 86.4 (80.0-98.0) fL MCH 28.2 (27.0-33.0) pg MCHC 32.6 (31.0-35.0) g/dl RDW 13.4 (11.0-16.0) % Plt Count 279 (160-400) X10*3/uL MPV 11.6 (9.4-12.3) fL Immature Gran % (Auto) 0.1 (0.0-0.4) % Neut % (Auto) 63.5 (45-73) % Lymph % (Auto) 27.0 (20-40) % [place] % (Auto) 7.8 (2-11) % Eos % (Auto) 1.1 (0-4) % Baso % (Auto) 0.5 (0-2) % Lymph # (Auto) 2.0 (1.2-4.9) X10*3/uL [place] # (Auto) 0.6 (0.1-1.2) X10*3/uL Eos # (Auto) 0.1 (0.0-0.4) X10*3/uL Baso # (Auto) 0.0 (0.0-0.2) X10*3/uL Abs Immat Gran (auto) 0.01 (0.00-0.03) X10*3/uL Absolute Neuts (auto) 4.6 (2.0-8.3) x10*3/uL Absolute Nucleated RBC 0.000 (0.0-0.012) X10*3/uL Nucleated RBC % (auto) 0.0 (0.0-0.2) /100WBC Sodium 139 (135-145) mmol/L Potassium 3.8 (3.3-5.1) mmol/L Chloride 104 (96-108) mmol/L Carbon Dioxide 30 H (22-29) mmol/L Anion Gap 9 L (12-20) BUN 12 (9-16) mg/dL Creatinine 0.77 (0.5-1.4) mg/dL Estim Creat Clear Calc 117.6 Estimated GFR > 60 Random Glucose 77 (60-115) mg/dL Calcium 9.4 (8.4-10.2) mg/dL Total Bilirubin 0.2 (0.0-1.0) mg/dL AST 14 (5-31) U/L ALT 13 (0-31) U/L Alkaline Phosphatase 61 (39-117) U/L Total Protein 7.7 (6.5-8.0) g/dL Albumin 4.3 (3.5-5.0) g/dL Urine Color YELLOW Urine Appearance CLEAR Urine pH 6.5 (5.0-8.0) Ur Specific [place] 1.010 (1.005-1.025) Urine Protein NEG (NEG-TRACE) MG/DL Urine Glucose (UA) NEG (NEG) MG/DL Urine Ketones NEG (NEG) MG/DL Urine Blood NEG (NEG) Urine Nitrite NEG (NEG) Ur Leukocyte Esterase NEG (NEG) Urine Test (NEGATIVE) 09/29/21 Range/Units 20:32 WBC (4.8-10.8) X10*3/uL RBC (4.20-5.50) X10*6/uL Hgb (12.0-16.0) g/dl Hct (37.0-47.0) % MCV (80.0-98.0) fL MCH (27.0-33.0) pg MCHC (31.0-35.0) g/dl RDW (11.0-16.0) % Plt Count (160-400) X10*3/uL MPV (9.4-12.3) fL Immature Gran % (Auto) (0.0-0.4) % Neut % (Auto) (45-73) % Lymph % (Auto) (20-40) % [place] % (Auto) (2-11) % Eos % (Auto) (0-4) % Baso % (Auto) (0-2) % Lymph # (Auto) (1.2-4.9) X10*3/uL [place] # (Auto) (0.1-1.2) X10*3/uL Eos # (Auto) (0.0-0.4) X10*3/uL Baso # (Auto) (0.0-0.2) X10*3/uL Abs Immat Gran (auto) (0.00-0.03) X10*3/uL Absolute Neuts (auto) (2.0-8.3) x10*3/uL Absolute Nucleated RBC (0.0-0.012) X10*3/uL Nucleated RBC % (auto) (0.0-0.2) /100WBC Sodium (135-145) mmol/L Potassium (3.3-5.1) mmol/L Chloride (96-108) mmol/L Carbon Dioxide (22-29) mmol/L Anion Gap (12-20) BUN (9-16) mg/dL Creatinine (0.5-1.4) mg/dL Estim Creat Clear Calc Estimated GFR Random Glucose (60-115) mg/dL Calcium (8.4-10.2) mg/dL Total Bilirubin (0.0-1.0) mg/dL AST (5-31) U/L ALT (0-31) U/L Alkaline Phosphatase (39-117) U/L Total Protein (6.5-8.0) g/dL Albumin (3.5-5.0) g/dL Urine Color Urine Appearance Urine pH (5.0-8.0) Ur Specific [place] (1.005-1.025) Urine Protein (NEG-TRACE) MG/DL Urine Glucose (UA) (NEG) MG/DL Urine Ketones (NEG) MG/DL Urine Blood (NEG) Urine Nitrite (NEG) Ur Leukocyte Esterase (NEG) Urine Test NEGATIVE (NEGATIVE) Discharge Plan Discharge Clinical Impression: Pelvic pain Patient Disposition: Home, Self-Care Instructions: Pelvic Pain in Women (ED) Additional Instructions: Cause of your pelvic is not very clear likely from impending menstruation Report to the ER if worsening of the pain/vomiting/fever Ibuprofen for pain Prescriptions: New ibuprofen 600 mg tablet 600 mg PO Q6H PRN (Reason: pain) Qty: 20 0RF No Action meclizine 25 mg tablet 25 mg PO TID PRN (Reason: dizziness or vertigo) Qty: 20 0RF levofloxacin 500 mg tablet 500 mg PO Q24H Qty: 7 0RF metronidazole 500 mg tablet 500 mg PO BID Qty: 14 0RF prednisone 20 mg tablet 60 mg PO DAILY 5 Days Qty: 15 0RF
[2021-09-29] MEDS: 0.9 % Sodium Chloride 1,000 ML 999 ML IV (22:26)
[2021-09-29] MEDS: Ketorolac Tromethamine 30 MG/ML VIAL IVPUSH (22:27)
== END 2021-09-29 23:43 | disposition home or self-care (01) ==
PROVIDERS: Emergency Provider Internal Medicine
DX: R10.2 Pelvic and perineal pain (principal); J45.909 Unspecified asthma, uncomplicated
CPT/HCPCS: 36415; 76830; 76856; 80053; 81003; 81025; 85025; 96361; 96374; 99284; J1885

== ENCOUNTER 2021-12-05 15:01 | Emergency (ER) | payer OTHER, SELFPAY ==
--- NOTE | ~2021-12-05 | US_ITS ---
EXAMINATION: US OBSTETRICAL ULTRASOUND CLINICAL INFORMATION: 6 weeks with vaginal bleeding COMPARISON: None. LMP: 10/20/2021. Gestational age by maternal dates is 6 weeks 4 days. Estimated date of delivery by maternal dates is 07/27/2022. TECHNIQUE: Transabdominal ultrasound was performed FINDINGS: There is a single intrauterine gestational sac with visible yolk sac, embryo/fetus, and cardiac activity. There is no significant subchorionic hemorrhage or hematoma. HR: 111 beats per minute. CRL (crown rump length): 0.67 cm (6 weeks 4 days +/- 4 days). MODE (estimated date of delivery): 07/27/2022 +/- 4 days. MATERNAL ADNEXA: The right maternal ovary measures 3.5 x 2.9 x 1.9 cm. The left maternal ovary measures 3.7 x 2.5 x 3.1 cm. There is no significant maternal adnexal mass. No maternal pelvic ascites. US/US OB <= 14 weeks fetus IMPRESSION: 1. Single intrauterine gestation with ultrasound gestational age of 6 weeks 4 days +/- 4 days. 2. Estimated date of delivery is 07/27/2022 +/- 4 days. 3. No maternal adnexal mass or pelvic ascites.
[2021-12-05 15:46] VITALS: BP 120/78; PULSE 100; RESP 18; TEMP 36.8; O2SAT 99; BMI 32.8
[2021-12-05 20:14] LABS: MANUAL DIFF FLAG NO
[2021-12-05 20:16] LABS: Basophils Percent Auto 0.3 % (0-2); Eosinophils Absolute Auto 0.1 X10*3/uL (0.0-0.4); Eosinophils Percent Auto 0.5 % (0-4); Hematocrit 38.6 % (37.0-47.0); Hemoglobin 12.8 g/dl (12.0-16.0); Imm Gran Abs Auto 0.04 X10*3/uL (0.00-0.03); Imm Gran Pct Auto 0.4 % (0.0-0.4); Lymphocytes Absolute Auto 1.8 X10*3/uL (1.2-4.9); Lymphocytes Percent Auto 19.1 % (20-40); Mean Corpuscular HGB Conc 33.2 g/dl (31.0-35.0); Mean Corpuscular Hemoglobin 28.2 pg (27.0-33.0); Mean Platelet Volume 11.2 fL (9.4-12.3); Monocytes Absolute Auto 0.7 X10*3/uL (0.1-1.2); Monocytes Percent Auto 7.5 % (2-11); Neutrophils Absolute Auto 6.7 x10*3/uL (2.0-8.3); Neutrophils Percent Auto 72.2 % (45-73); Platelet Count 264 X10*3/uL (160-400); Red Blood Count 4.54 X10*6/uL (4.20-5.50); White Blood Count 9.3 X10*3/uL (4.8-10.8)
[2021-12-05 20:32] LABS: Alanine Aminotransferase 25 U/L (0-31); Albumin Level 4.4 g/dL (3.5-5.0); Alkaline Phosphatase 58 U/L (39-117); Anion Gap 14 (12-20); Aspartate Amino Transferase 17 U/L (5-31); Bilirubin Direct < 0.2 mg/dL (0.0-0.5); Bilirubin Total 0.2 mg/dL (0.0-1.0); Blood Urea Nitrogen 13 mg/dL (9-16); Calcium 9.3 mg/dL (8.4-10.2); Carbon Dioxide 21 mmol/L (22-29); Chloride 104 mmol/L (96-108); Creatinine Clr Calc Pharmacy 141.7; Estimated Glomerular Filt Rate > 60; Glucose Random 80 mg/dL (60-115); Potassium 4.3 mmol/L (3.3-5.1); Sodium 135 mmol/L (135-145); Total Protein 7.8 g/dL (6.5-8.0)
--- NOTE | 2021-12-05 21:20 | ED_ITS ---
HPI - Female Genitourinary General Chief complaint: Vaginal Bleeding Stated complaint: 7 weeks/ bleeding Time Seen by Provider: 12/05/21 17:49 Source: patient and family Mode of arrival: ambulatory Limitations: no limitations History of Present Illness HPI Narrative: 30-year-old female about 6 weeks past medical history significant for diabetes, migraine, and asthma. Came in for evaluation of vaginal spotting since this morning, patient declined heavy bleeding just spotting changed 1 pad the whole day today. No active bleeding right now, feels suprapubic cramps intermittently, nothing aggravate the pain, nothing relieves the pain, no dysuria, no increased urinary frequency, no fever, no chills. No trauma. Related Data Previous Rx's Medication Instructions Recorded levofloxacin 500 mg tablet 500 mg PO Q24H #7 tabs 03/21/20 metronidazole 500 mg tablet 500 mg PO BID #14 tabs 03/21/20 meclizine 25 mg tablet 25 mg PO TID PRN dizziness or 06/18/20 vertigo #20 tabs prednisone 20 mg tablet 60 mg PO DAILY 5 days #15 tabs 11/13/20 ibuprofen 600 mg tablet 600 mg PO Q6H PRN pain #20 tabs 09/29/21 Allergies Allergy/AdvReac Type Severity Reaction Status Date / Time No Known Allergies Allergy Verified 12/05/21 15:46 Review of Systems Review of Systems: All other systems are reviewed and are negative Constitutional: Reports as per HPI and Reports no additional constitutional complaints Eyes: Reports as per HPI and Reports no additional eye complaints Reports system reviewed and no additional complaints, except as documented Cardiovascular: Reports as per HPI and Reports no additional cardiovascular complaints Respiratory: Reports as per HPI and Reports no additional respiratory complaints Gastrointestinal: Reports as per HPI and Reports no additional gastrointestinal complaints Genitourinary: Reports no additional female genitourinary complaints Musculoskeletal: Reports no additional musculoskeletal complaints Skin/Breast: Reports system reviewed and no additional complaints, except as docu Psychiatric: Reports no additional psychiatric complaints Endocrine: Reports no additional endocrine complaints Hematologic/Lymphatic: Reports no additional hematologic/lymphatic complaints Allergic/Immunologic: Reports no additional allergic/immunologic complaints Reports system reviewed and no additional complaints, except as documented and Reports Abnormal speech present [facility] Past Medical History Medical History Asthma Migraine Social History Social History Alcohol intake: never Patient Tobacco Use Status: Never used Tobacco Advance Directives: No Advance Directives Information Provided: Yes Physical Exam Vital Signs: Vital Signs: Last Vital Signs Temp 98.3 F 12/05/21 15:46 Pulse 89 12/05/21 21:41 Resp 20 12/05/21 21:41 BP 113/72 12/05/21 21:41 Pulse Ox 99 12/05/21 21:41 O2 Del Method 12/05/21 21:41 BMI result Body Mass Index 32.8 Vital signs have been reviewed as appeared to be correct. Blood pressure normal. Heart rate normal. Respiration rate normal. Temperature normal. Oxygen saturation normal. Appearance: Alert. Oriented X3. No acute distress. Head: Normal external exam. Normocephalic. Atraumatic. No José signs noted. No raccoon eyes noted Eyes: PERRLA. EOMI. Conjunctiva and sclera normal. Eyelids normal. ENT: TM's Normal. Pharynx normal. Uvula midline. Moist mucous membranes. No trismus noted. No drooling noted. No muffled voice noted. Neck: Normal inspection. Neck supple. FROM. No adenopathy. Thyroid Normal. No meningeal signs. No neck mass noted. CVS: Normal heart rate and rhythm. Heart sound normal. No murmurs noted. Pulses normal throughout. Respiratory: No respiratory distress. Painless inspiration. Breath sounds normal. No wheezes/rales/rhonchi noted. Chest nontender. No accessory muscle usage noted or decreased air movement noted. Abdomen: Soft and nontender. Bowel sounds normal in all 4 quadrants. No distention noted. No organomegaly noted. No visible injury noted. Pelvic exam: Os closed, scant amount of blood in the vault no active bleeding, no palpable or tenderness in the adnexa. Back: No CVA tenderness. Full range of motion noted. Skin: Skin warm and dry. Normal skin color. Normal skin turgor. No rashes/lesions/lacerations noted. Extremities: No lower extremity edema. Extremities exhibit normal range of motion. Extremities nontender. Neuro: Oriented X 3. Cranial nerve exam: II-XII are grossly intact No motor deficit. No sensory deficit. Reflexes normal. Course Course Course Narrative: Assessment and plan. 30-year-old female about 6 weeks and 4 days with vaginal bleeding, ultrasound showed no evidence of ectopic with 1 early IUP, patient will be instructed to wrist with doing no strenuous activity and instruction for threatened MDM - Female Genitourinary Medical Records Attestation: I reviewed the patient's medical records. Lab Data Attestation: I reviewed the patient's lab results. Result diagrams: 12/05/21 20:09 12/05/21 20:09 Labs: Lab Results 12/05/21 12/05/21 12/05/21 Range/Units 20:09 20:09 20:09 WBC 9.3 (4.8-10.8) X10*3/uL RBC 4.54 (4.20-5.50) X10*6/uL Hgb 12.8 (12.0-16.0) g/dl Hct 38.6 (37.0-47.0) % MCV 85.0 (80.0-98.0) fL MCH 28.2 (27.0-33.0) pg MCHC 33.2 (31.0-35.0) g/dl RDW 14.0 (11.0-16.0) % Plt Count 264 (160-400) X10*3/uL MPV 11.2 (9.4-12.3) fL Immature Gran % (Auto) 0.4 (0.0-0.4) % Neut % (Auto) 72.2 (45-73) % Lymph % (Auto) 19.1 L (20-40) % [place] % (Auto) 7.5 (2-11) % Eos % (Auto) 0.5 (0-4) % Baso % (Auto) 0.3 (0-2) % Lymph # (Auto) 1.8 (1.2-4.9) X10*3/uL [place] # (Auto) 0.7 (0.1-1.2) X10*3/uL Eos # (Auto) 0.1 (0.0-0.4) X10*3/uL Baso # (Auto) 0.0 (0.0-0.2) X10*3/uL Abs Immat Gran (auto) 0.04 H (0.00-0.03) X10*3/uL Absolute Neuts (auto) 6.7 (2.0-8.3) x10*3/uL Absolute Nucleated RBC 0.000 (0.0-0.012) X10*3/uL Nucleated RBC % (auto) 0.0 (0.0-0.2) /100WBC Sodium 135 (135-145) mmol/L Potassium 4.3 (3.3-5.1) mmol/L Chloride 104 (96-108) mmol/L Carbon Dioxide 21 L (22-29) mmol/L Anion Gap 14 (12-20) BUN 13 (9-16) mg/dL Creatinine 0.63 (0.5-1.4) mg/dL Estim Creat Clear Calc 141.7 Estimated GFR > 60 Random Glucose 80 (60-115) mg/dL Calcium 9.3 (8.4-10.2) mg/dL Total Bilirubin 0.2 (0.0-1.0) mg/dL Direct Bilirubin < 0.2 (0.0-0.5) mg/dL AST 17 (5-31) U/L ALT 25 (0-31) U/L Alkaline Phosphatase 58 (39-117) U/L Total Protein 7.8 (6.5-8.0) g/dL Albumin 4.4 (3.5-5.0) g/dL Beta HCG, Quant 14056 mIU/mL Urine Color Urine Appearance Urine pH (5.0-8.0) Ur Specific [place] (1.005-1.025) Urine Protein (NEG-TRACE) MG/DL Urine Glucose (UA) (NEG) MG/DL Urine Ketones (NEG) MG/DL Urine Blood (NEG) Urine Nitrite (NEG) Ur Leukocyte Esterase (NEG) Urine RBC (0) /HPF Urine WBC (0-4) /HPF Ur Squamous Epith Cells /LPF Urine Bacteria /LPF Blood Type A Positive 12/05/21 Range/Units 21:43 WBC (4.8-10.8) X10*3/uL RBC (4.20-5.50) X10*6/uL Hgb (12.0-16.0) g/dl Hct (37.0-47.0) % MCV (80.0-98.0) fL MCH (27.0-33.0) pg MCHC (31.0-35.0) g/dl RDW (11.0-16.0) % Plt Count (160-400) X10*3/uL MPV (9.4-12.3) fL Immature Gran % (Auto) (0.0-0.4) % Neut % (Auto) (45-73) % Lymph % (Auto) (20-40) % [place] % (Auto) (2-11) % Eos % (Auto) (0-4) % Baso % (Auto) (0-2) % Lymph # (Auto) (1.2-4.9) X10*3/uL [place] # (Auto) (0.1-1.2) X10*3/uL Eos # (Auto) (0.0-0.4) X10*3/uL Baso # (Auto) (0.0-0.2) X10*3/uL Abs Immat Gran (auto) (0.00-0.03) X10*3/uL Absolute Neuts (auto) (2.0-8.3) x10*3/uL Absolute Nucleated RBC (0.0-0.012) X10*3/uL Nucleated RBC % (auto) (0.0-0.2) /100WBC Sodium (135-145) mmol/L Potassium (3.3-5.1) mmol/L Chloride (96-108) mmol/L Carbon Dioxide (22-29) mmol/L Anion Gap (12-20) BUN (9-16) mg/dL Creatinine (0.5-1.4) mg/dL Estim Creat Clear Calc Estimated GFR Random Glucose (60-115) mg/dL Calcium (8.4-10.2) mg/dL Total Bilirubin (0.0-1.0) mg/dL Direct Bilirubin (0.0-0.5) mg/dL AST (5-31) U/L ALT (0-31) U/L Alkaline Phosphatase (39-117) U/L Total Protein (6.5-8.0) g/dL Albumin (3.5-5.0) g/dL Beta HCG, Quant mIU/mL Urine Color YELLOW Urine Appearance CLEAR Urine pH 6.5 (5.0-8.0) Ur Specific [place] 1.020 (1.005-1.025) Urine Protein NEG (NEG-TRACE) MG/DL Urine Glucose (UA) NEG (NEG) MG/DL Urine Ketones NEG (NEG) MG/DL Urine Blood 3+ H (NEG) Urine Nitrite NEG (NEG) Ur Leukocyte Esterase NEG (NEG) Urine RBC 30-49 H (0) /HPF Urine WBC 0-2 (0-4) /HPF Ur Squamous Epith Cells 1+ /LPF Urine Bacteria 1+ /LPF Blood Type Imaging Data Pelvic ultrasound: Attestation: I personally reviewed and interpreted this imaging study as follows: Radiologist's impression: 1. Single intrauterine gestation with ultrasound gestational age of? 6 weeks 4 days +/- 4 days. 2. Estimated date of delivery is 07/27/2022 +/- 4 days. 3. No maternal adnexal mass or pelvic ascites. Discharge Plan Discharge Clinical Impression: Threatened Additional Instructions: No strenuous activity, no sexual intercourse, rest, no heavy lifting. Follow-up with your OBGYN Prescriptions: No Action meclizine 25 mg tablet 25 mg PO TID PRN (Reason: dizziness or vertigo) Qty: 20 0RF levofloxacin 500 mg tablet 500 mg PO Q24H Qty: 7 0RF metronidazole 500 mg tablet 500 mg PO BID Qty: 14 0RF prednisone 20 mg tablet 60 mg PO DAILY 5 Days Qty: 15 0RF ibuprofen 600 mg tablet 600 mg PO Q6H PRN (Reason: pain) Qty: 20 0RF Referrals: Diana Shen FNP [Primary Care Provider] - Stand Alone Forms: Work/School Release
[2021-12-05 21:28] LABS: HCG Quantitative 53141 mIU/mL
[2021-12-05 21:41] VITALS: BP 113/72; PULSE 89; RESP 20; O2SAT 99
[2021-12-05 21:51] LABS: Appearance Urine CLEAR; Color Urine YELLOW; Glucose Urine UA NEG (NEG); Leukocyte Esterase Urine NEG (NEG); Nitrite Urine NEG (NEG); PH 6.5 (5.0-8.0); UACC Culture Trigger NO; Urine Blood 3+ (NEG); Urine Ketones NEG (NEG); Urine Protein NEG (NEG-TRACE)
[2021-12-05 22:26] LABS: Bacteria Urine 1+ /LPF; RBC Urine 30-49 /HPF (0); Squamous Epithelial Cell Urine 1+ /LPF; WBC Urine 0-2 /HPF (0-4)
== END 2021-12-06 00:04 | disposition home or self-care (01) ==
PROVIDERS: Emergency Medicine; Emergency Provider Emergency Medicine; PCP Registered Nurse
DX: O20.0 Threatened abortion (principal); Z3A.01 Less than 8 weeks gestation of pregnancy
CPT/HCPCS: 36415; 76801; 80048; 80076; 81001; 84702; 85025; 86900; 86901; 99283; 99284

== ENCOUNTER 2022-12-16 12:54 | Emergency (ER) | payer OTHER, SELFPAY ==
--- NOTE | ~2022-12-16 | CT_ITS ---
EXAMINATION: CT HEAD WITHOUT CONTRAST CLINICAL INFORMATION: Headache. COMPARISON: None available. TECHNIQUE: Contiguous axial imaging was performed from the skull base to vertex without intravenous administration of contrast. This CT examination was performed using dose optimization techniques as appropriate, variously including the following: *Automated exposure control *Adjustment of mA and/or kV according to patient size (this includes techniques or standardized protocols for targeted exams where dose is matched to indication/reason for exam; i.e. extremities or head) *Use of iterative reconstruction technique DLP: 676 mGy-cm FINDINGS: There is no acute intra-axial, extra-axial bleed, masses or midline shift. There is no acute infarction in evolution. There is no edema. Miller to white matter differentiation is maintained normal. The lateral ventricles are symmetrical in size and configuration without enlargement. Bone windows reveal no calvarial abnormality. There is no scalp soft tissue abnormality. Bilateral paranasal sinuses and mastoid air cells are well-aerated. CT/CT head/brain wo IV con IMPRESSION: No acute intracranial process seen.
--- NOTE | 2022-12-16 13:12 | ED.GENADULT ---
HPI - General Adult General Chief complaint: Headache Stated complaint: head pressure wants bp check Time Seen by Provider: 12/16/22 15:34 Related Data Previous Rx's Medication Instructions Recorded levofloxacin 500 mg tablet 500 mg PO Q24H #7 tabs 03/21/20 metronidazole 500 mg tablet 500 mg PO BID #14 tabs 03/21/20 meclizine 25 mg tablet 25 mg PO TID PRN dizziness or 06/18/20 vertigo #20 tabs prednisone 20 mg tablet 60 mg PO DAILY 5 days #15 tabs 11/13/20 ibuprofen 600 mg tablet 600 mg PO Q6H PRN pain #20 tabs 09/29/21 Allergies Allergy/AdvReac Type Severity Reaction Status Date / Time No Known Allergies Allergy Verified 12/05/21 15:46 [facility] Past Medical History Medical History (Updated 12/17/22 @ 00:00 by Krishan Singh) Asthma Gestational diabetes Migraine Sleep apnea Social History Social History Alcohol intake: never Patient Tobacco Use Status: Never used Tobacco Smoked in Last 30 Days: No Use of substances other than those prescribed or required for medical reasons: No Advance Directives: No Advance Directives Information Provided: No Patient : No Physical Exam ED Vital Signs: BMI result Body Mass Index 35.6 Course Course Course Narrative: This is a rapid medical exam: Additional HPI, ROS, PE not included below will be deferred to primary provider. Patient is a 31-year-old female presenting to the emergency department with complaint of pressure to back of head as well as face since yesterday. Denies any fevers or URI symptoms. Did not take any OTC medications. States she checked her BP on her mother's machine and it was elevated. Reports blurred vision, denies any double vision or other visual changes. Also complains of nausea but denies vomiting or abdominal pain. Reports she has pre-diabtes but is not on any medication for this at this time. Also complains of tingling to right hand. Reports history of migraines but states this feels different. Plan: labs Medical Decision Making Lab Data 12/16/22 13:30 12/16/22 13:30 Labs: Lab Results 12/16/22 12/16/22 12/16/22 Range/Units 13:30 13:30 13:30 WBC 7.0 (4.8-10.8) X10*3/uL RBC 4.64 (4.20-5.50) X10*6/uL Hgb 11.0 L (12.0-16.0) g/dl Hct 36.2 L (37.0-47.0) % MCV 78.0 L (80.0-98.0) fL MCH 23.7 L (27.0-33.0) pg MCHC 30.4 L (31.0-35.0) g/dl RDW 16.8 H (11.0-16.0) % Plt Count 318 (160-400) X10*3/uL MPV 11.4 (9.4-12.3) fL Immature Gran % (Auto) 0.1 (0.0-0.4) % Neut % (Auto) 67.9 (45-73) % Lymph % (Auto) 22.4 (20-40) % [place] % (Auto) 7.2 (2-11) % Eos % (Auto) 1.7 (0-4) % Baso % (Auto) 0.7 (0-2) % Lymph # (Auto) 1.6 (1.2-4.9) X10*3/uL [place] # (Auto) 0.5 (0.1-1.2) X10*3/uL Eos # (Auto) 0.1 (0.0-0.4) X10*3/uL Baso # (Auto) 0.1 (0.0-0.2) X10*3/uL Abs Immat Gran (auto) 0.01 (0.00-0.03) X10*3/uL Absolute Neuts (auto) 4.7 (2.0-8.3) x10*3/uL Absolute Nucleated RBC 0.000 (0.0-0.012) X10*3/uL Nucleated RBC % (auto) 0.0 (0.0-0.2) /100WBC Sodium 140 (135-145) mmol/L Potassium 3.9 (3.3-5.1) mmol/L Chloride 107 (96-108) mmol/L Carbon Dioxide 26 (22-29) mmol/L Anion Gap 11 L (12-20) BUN 9 (9-16) mg/dL Creatinine 0.66 (0.5-1.4) mg/dL Estim Creat Clear Calc 139.7 Estimated GFR > 60 Random Glucose 103 (60-115) mg/dL Calcium 9.6 (8.4-10.2) mg/dL Beta HCG, Quant < 2 mIU/mL Urine Color Urine Appearance Urine pH (5.0-9.0) Ur Specific [place] (1.005-1.025) Urine Protein (Neg-Trace) mg/dL Urine Glucose (UA) (Negative) mg/dL Urine Ketones (Negative) mg/dL Urine Blood (Negative) Urine Nitrite (Negative) Ur Leukocyte Esterase (Negative) Urine RBC (0-2) /HPF Urine WBC (0-5) /HPF Ur Squamous Epith Cells (0-2) /HPF Urine Bacteria (None Seen) Hyaline Casts (0-2) /LPF 12/16/22 Range/Units 15:55 WBC (4.8-10.8) X10*3/uL RBC (4.20-5.50) X10*6/uL Hgb (12.0-16.0) g/dl Hct (37.0-47.0) % MCV (80.0-98.0) fL MCH (27.0-33.0) pg MCHC (31.0-35.0) g/dl RDW (11.0-16.0) % Plt Count (160-400) X10*3/uL MPV (9.4-12.3) fL Immature Gran % (Auto) (0.0-0.4) % Neut % (Auto) (45-73) % Lymph % (Auto) (20-40) % [place] % (Auto) (2-11) % Eos % (Auto) (0-4) % Baso % (Auto) (0-2) % Lymph # (Auto) (1.2-4.9) X10*3/uL [place] # (Auto) (0.1-1.2) X10*3/uL Eos # (Auto) (0.0-0.4) X10*3/uL Baso # (Auto) (0.0-0.2) X10*3/uL Abs Immat Gran (auto) (0.00-0.03) X10*3/uL Absolute Neuts (auto) (2.0-8.3) x10*3/uL Absolute Nucleated RBC (0.0-0.012) X10*3/uL Nucleated RBC % (auto) (0.0-0.2) /100WBC Sodium (135-145) mmol/L Potassium (3.3-5.1) mmol/L Chloride (96-108) mmol/L Carbon Dioxide (22-29) mmol/L Anion Gap (12-20) BUN (9-16) mg/dL Creatinine (0.5-1.4) mg/dL Estim Creat Clear Calc Estimated GFR Random Glucose (60-115) mg/dL Calcium (8.4-10.2) mg/dL Beta HCG, Quant mIU/mL Urine Color Yellow Urine Appearance Clear Urine pH 6.5 (5.0-9.0) Ur Specific [place] 1.015 (1.005-1.025) Urine Protein Negative (Neg-Trace) mg/dL Urine Glucose (UA) Negative (Negative) mg/dL Urine Ketones Negative (Negative) mg/dL Urine Blood Moderate (2+) H (Negative) Urine Nitrite Negative (Negative) Ur Leukocyte Esterase Negative (Negative) Urine RBC 0-2 (0-2) /HPF Urine WBC 0-5 (0-5) /HPF Ur Squamous Epith Cells 6-10 (0-2) /HPF Urine Bacteria Trace (None Seen) Hyaline Casts 0-2 (0-2) /LPF Discharge Plan Discharge Clinical Impression: Headache Patient Disposition: Home, Self-Care Instructions: Acute Headache (DC) Prescriptions: No Action meclizine 25 mg tablet 25 mg PO TID PRN (Reason: dizziness or vertigo) Qty: 20 0RF levofloxacin 500 mg tablet 500 mg PO Q24H Qty: 7 0RF metronidazole 500 mg tablet 500 mg PO BID Qty: 14 0RF prednisone 20 mg tablet 60 mg PO DAILY 5 Days Qty: 15 0RF ibuprofen 600 mg tablet 600 mg PO Q6H PRN (Reason: pain) Qty: 20 0RF Referrals: Diana Shen FNP [Primary Care Provider] - 2 days Interventions: ED Discharge Assessment Last Done: 12/16/22 19:36 Discharge Date/Time: 12/16/22 19:37
[2022-12-16 13:14] VITALS: PULSE 88; RESP 20; TEMP 36.7; O2SAT 100; BMI 35.6
[2022-12-16 13:35] LABS: MANUAL DIFF FLAG NO
[2022-12-16 13:45] LABS: Basophils Absolute Auto 0.1 X10*3/uL (0.0-0.2); Basophils Percent Auto 0.7 % (0-2); Eosinophils Absolute Auto 0.1 X10*3/uL (0.0-0.4); Eosinophils Percent Auto 1.7 % (0-4); Hematocrit 36.2 % (37.0-47.0); Imm Gran Abs Auto 0.01 X10*3/uL (0.00-0.03); Imm Gran Pct Auto 0.1 % (0.0-0.4); Lymphocytes Absolute Auto 1.6 X10*3/uL (1.2-4.9); Lymphocytes Percent Auto 22.4 % (20-40); Mean Corpuscular HGB Conc 30.4 g/dl (31.0-35.0); Mean Corpuscular Hemoglobin 23.7 pg (27.0-33.0); Mean Platelet Volume 11.4 fL (9.4-12.3); Monocytes Absolute Auto 0.5 X10*3/uL (0.1-1.2); Monocytes Percent Auto 7.2 % (2-11); Neutrophils Absolute Auto 4.7 x10*3/uL (2.0-8.3); Neutrophils Percent Auto 67.9 % (45-73); Platelet Count 318 X10*3/uL (160-400); Red Blood Count 4.64 X10*6/uL (4.20-5.50); Red Cell Distribution Width 16.8 % (11.0-16.0)
[2022-12-16 13:55] LABS: Anion Gap 11 (12-20); Blood Urea Nitrogen 9 mg/dL (9-16); Calcium 9.6 mg/dL (8.4-10.2); Carbon Dioxide 26 mmol/L (22-29); Chloride 107 mmol/L (96-108); Creatinine Clr Calc Pharmacy 139.7; Estimated Glomerular Filt Rate > 60; Glucose Random 103 mg/dL (60-115); Potassium 3.9 mmol/L (3.3-5.1); Sodium 140 mmol/L (135-145)
[2022-12-16 14:04] LABS: HCG Quantitative < 2 mIU/mL
[2022-12-16 15:37] VITALS: BP 123/83; PULSE 82; RESP 16; TEMP 36.8; O2SAT 99
--- NOTE | 2022-12-16 15:39 | ED.HA ---
HPI - Headache General Chief Complaint: Headache Stated Complaint: head pressure wants bp check Time Seen by Provider: 12/16/22 15:34 Source: patient Mode of arrival: ambulatory Limitations: no limitations History of Present Illness HPI Narrative: This is a 31 years old female with history of migraines presented to emergency room complaining of elevated blood pressure and had come pressure, she denies any fever vomiting neck pain MD elicited complaint: headache Onset (ago): day(s) (1) Onset description: gradually Location: frontal Severity: mild Quality & Timing: aching Exacerbating factors: none Relieving factors: nothing Associated symptoms: none Related Data Previous Rx's Medication Instructions Recorded levofloxacin 500 mg tablet 500 mg PO Q24H #7 tabs 03/21/20 metronidazole 500 mg tablet 500 mg PO BID #14 tabs 03/21/20 meclizine 25 mg tablet 25 mg PO TID PRN dizziness or 06/18/20 vertigo #20 tabs prednisone 20 mg tablet 60 mg PO DAILY 5 days #15 tabs 11/13/20 ibuprofen 600 mg tablet 600 mg PO Q6H PRN pain #20 tabs 09/29/21 Allergies Allergy/AdvReac Type Severity Reaction Status Date / Time No Known Allergies Allergy Verified 12/05/21 15:46 Review of Systems Constitutional: Constitutional: Reports no additional constitutional complaints ENT: Reports system reviewed and no additional complaints, except as documented Cardiovascular: Cardiovascular: Reports no additional cardiovascular complaints Respiratory: Respiratory: Reports no additional respiratory complaints [facility] Past Medical History [facility] Narrative: History of type 2 diabetes, hypertension Medical History (Updated 12/16/22 @ 18:51 by Thanh Barney MD) Asthma Gestational diabetes Migraine Sleep apnea Social History Social History Alcohol intake: never Patient Tobacco Use Status: Never used Tobacco Smoked in Last 30 Days: No Use of substances other than those prescribed or required for medical reasons: No Advance Directives: No Advance Directives Information Provided: No Patient : No Physical Exam Vital Signs: Vital Signs: Last Vital Signs Temp 98.3 F 12/16/22 15:37 Pulse 82 12/16/22 15:37 Resp 16 12/16/22 15:37 BP 123/83 12/16/22 15:37 Pulse Ox 99 12/16/22 15:37 O2 Del Method Room Air 12/16/22 15:37 BMI result Body Mass Index 35.6 Const: General: cooperative Nutritional Appearance: well nourished Orientation/consciousness: patient oriented x3 Limitations: no limitations HEENT: Head: Yes normal to inspection General nose exam: Normal external nose present Face and sinus: Yes normal facial exam Throat: Yes posterior oropharynx normal Neck: Neck: Yes normal visual inspection Chest: Chest palpation & inspection: normal inspection of the chest Resp: Effort & Inspection: normal respiratory effort and able to speak in complete sentences Auscultation: clear to auscultation bilaterally Cardio: Jugular venous distension: no JVD Palpation: normal PMI Rate: regular rate Rhythm: regular rhythm GI: Inspection: Yes normal to inspection Palpation (GI): Soft to palpation, not firm and nontender Auscultation: normal bowel sounds Skin: General skin exam: no rashes or lesions noted Lesions: no lesions Rashes: no rashes Neuro: General: patient oriented x3, gait normal and CN's II-XI intact bilaterally Cranial nerves: Yes CN's II-XII intact bilaterally and Yes Facial sensation intact/muscles of mastication intact Cognition (Neuro): normal cognition Extrem: General: Yes normal to inspection, Yes full ROM and Yes capillary refill normal Course Reevaluation(s) Reevaluation #1: Feels better workup negative blood pressure normal plan discharge Time: 18:51 Medical Decision Making Medical Decision Making [facility] Narrative: Patient presents to the emergency department complaining of elevated blood pressure and headache will recheck the blood pressure will check labs imaging reassess Differential Diagnosis Differential Diagnoses: The differential diagnosis associated with the presentation includes Subdural hematoma intracranial bleed, viral illness hypertensive urgency/crisis Admission/Observation Consideration of admission/observation: Escalation of care including admission/observation considered Lab Data [facility] Lab Attestation statement: I reviewed the patient's lab results. 12/16/22 13:30 12/16/22 13:30 Labs: Lab Results 12/16/22 12/16/22 12/16/22 Range/Units 13:30 13:30 13:30 WBC 7.0 (4.8-10.8) X10*3/uL RBC 4.64 (4.20-5.50) X10*6/uL Hgb 11.0 L (12.0-16.0) g/dl Hct 36.2 L (37.0-47.0) % MCV 78.0 L (80.0-98.0) fL MCH 23.7 L (27.0-33.0) pg MCHC 30.4 L (31.0-35.0) g/dl RDW 16.8 H (11.0-16.0) % Plt Count 318 (160-400) X10*3/uL MPV 11.4 (9.4-12.3) fL Immature Gran % (Auto) 0.1 (0.0-0.4) % Neut % (Auto) 67.9 (45-73) % Lymph % (Auto) 22.4 (20-40) % Dane % (Auto) 7.2 (2-11) % Eos % (Auto) 1.7 (0-4) % Baso % (Auto) 0.7 (0-2) % Lymph # (Auto) 1.6 (1.2-4.9) X10*3/uL Dane # (Auto) 0.5 (0.1-1.2) X10*3/uL Eos # (Auto) 0.1 (0.0-0.4) X10*3/uL Baso # (Auto) 0.1 (0.0-0.2) X10*3/uL Abs Immat Gran (auto) 0.01 (0.00-0.03) X10*3/uL Absolute Neuts (auto) 4.7 (2.0-8.3) x10*3/uL Absolute Nucleated RBC 0.000 (0.0-0.012) X10*3/uL Nucleated RBC % (auto) 0.0 (0.0-0.2) /100WBC Sodium 140 (135-145) mmol/L Potassium 3.9 (3.3-5.1) mmol/L Chloride 107 (96-108) mmol/L Carbon Dioxide 26 (22-29) mmol/L Anion Gap 11 L (12-20) BUN 9 (9-16) mg/dL Creatinine 0.66 (0.5-1.4) mg/dL Estim Creat Clear Calc 139.7 Estimated GFR > 60 Random Glucose 103 (60-115) mg/dL Calcium 9.6 (8.4-10.2) mg/dL Beta HCG, Quant < 2 mIU/mL Urine Color Urine Appearance Urine pH (5.0-9.0) Ur Specific [place] (1.005-1.025) Urine Protein (Neg-Trace) mg/dL Urine Glucose (UA) (Negative) mg/dL Urine Ketones (Negative) mg/dL Urine Blood (Negative) Urine Nitrite (Negative) Ur Leukocyte Esterase (Negative) Urine RBC (0-2) /HPF Urine WBC (0-5) /HPF Ur Squamous Epith Cells (0-2) /HPF Urine Bacteria (None Seen) Hyaline Casts (0-2) /LPF 12/16/22 Range/Units 15:55 WBC (4.8-10.8) X10*3/uL RBC (4.20-5.50) X10*6/uL Hgb (12.0-16.0) g/dl Hct (37.0-47.0) % MCV (80.0-98.0) fL MCH (27.0-33.0) pg MCHC (31.0-35.0) g/dl RDW (11.0-16.0) % Plt Count (160-400) X10*3/uL MPV (9.4-12.3) fL Immature Gran % (Auto) (0.0-0.4) % Neut % (Auto) (45-73) % Lymph % (Auto) (20-40) % Dane % (Auto) (2-11) % Eos % (Auto) (0-4) % Baso % (Auto) (0-2) % Lymph # (Auto) (1.2-4.9) X10*3/uL Dane # (Auto) (0.1-1.2) X10*3/uL Eos # (Auto) (0.0-0.4) X10*3/uL Baso # (Auto) (0.0-0.2) X10*3/uL Abs Immat Gran (auto) (0.00-0.03) X10*3/uL Absolute Neuts (auto) (2.0-8.3) x10*3/uL Absolute Nucleated RBC (0.0-0.012) X10*3/uL Nucleated RBC % (auto) (0.0-0.2) /100WBC Sodium (135-145) mmol/L Potassium (3.3-5.1) mmol/L Chloride (96-108) mmol/L Carbon Dioxide (22-29) mmol/L Anion Gap (12-20) BUN (9-16) mg/dL Creatinine (0.5-1.4) mg/dL Estim Creat Clear Calc Estimated GFR Random Glucose (60-115) mg/dL Calcium (8.4-10.2) mg/dL Beta HCG, Quant mIU/mL Urine Color Yellow Urine Appearance Clear Urine pH 6.5 (5.0-9.0) Ur Specific [place] 1.015 (1.005-1.025) Urine Protein Negative (Neg-Trace) mg/dL Urine Glucose (UA) Negative (Negative) mg/dL Urine Ketones Negative (Negative) mg/dL Urine Blood Moderate (2+) H (Negative) Urine Nitrite Negative (Negative) Ur Leukocyte Esterase Negative (Negative) Urine RBC 0-2 (0-2) /HPF Urine WBC 0-5 (0-5) /HPF Ur Squamous Epith Cells 6-10 (0-2) /HPF Urine Bacteria Trace (None Seen) Hyaline Casts 0-2 (0-2) /LPF Independent Interpretation I performed an independent interpretation of an: CT Scan Radiology Impression Discussion of test interpretation with radiology: I have reviewed the radiologist's reading. Chronic Conditions migraine Discharge Plan Discharge Clinical Impression: Headache Patient Disposition: Home, Self-Care Instructions: Acute Headache (DC) Prescriptions: No Action meclizine 25 mg tablet 25 mg PO TID PRN (Reason: dizziness or vertigo) Qty: 20 0RF levofloxacin 500 mg tablet 500 mg PO Q24H Qty: 7 0RF metronidazole 500 mg tablet 500 mg PO BID Qty: 14 0RF prednisone 20 mg tablet 60 mg PO DAILY 5 Days Qty: 15 0RF ibuprofen 600 mg tablet 600 mg PO Q6H PRN (Reason: pain) Qty: 20 0RF Referrals: Diana Shen FNP [Primary Care Provider] - 2 days
[2022-12-16 16:03] LABS: Appearance Urine Clear; Color Urine Yellow; Glucose Urine UA Negative (Negative); Leukocyte Esterase Urine Negative (Negative); Nitrite Urine Negative (Negative); PH 6.5 (5.0-9.0); Specific Gravity - Urine 1.015 (1.005-1.025); UMIC TRIGGER UACC YES; Urine Blood Moderate (2+) (Negative); Urine Ketones Negative (Negative); Urine Protein Negative (Neg-Trace)
[2022-12-16 18:19] LABS: Bacteria Urine Trace (None Seen); Hyaline Casts Urine 0-2 /LPF (0-2); RBC Urine 0-2 /HPF (0-2); WBC Urine 0-5 /HPF (0-5)
== END 2022-12-16 19:37 | disposition home or self-care (01) ==
PROVIDERS: Registered Nurse Emergency; Emergency Provider Emergency Medicine; PCP Registered Nurse
DX: R51.9 Headache, unspecified (principal); Z79.899 Other long term (current) drug therapy
CPT/HCPCS: 36415; 70450; 80048; 81001; 81003; 84702; 85025; 99284